=== PATIENT | female | born 1950 | race Caucasian/White ===

== ENCOUNTER 2025-06-06 09:04 | Day surgery (SDC) | payer MEDICARE, MEDICAID, SELFPAY ==
[2025-06-06] VITALS (10 sets, daily range): BP systolic 98–126; BP diastolic 55–63; PULSE 53–72; RESP 16; TEMP 36.2–37.3; O2SAT 89–97; BMI 31.8
[2025-06-06] MEDS: Lactated Ringers 1,000 ML 15 ML IV (09:30)
--- NOTE | 2025-06-06 10:00 | COLBX_PTH ---
PATIENT: SHERRELL DANIELS (TREVIN) J LOC: EN U#:[id number] AGE/SX: 74/F ROOM: RE06/06/[address]: Dr. Tyree Mcelroy DO : 1950 BED: DIS: 06/06/2025 SPEC #: [id number] RECD: 06/06/25 13:43 STATUS: ALKA REQ #: [id number] DESTINY: 06/06/25 10:[address]: Tyree Mcelroy DEPT: SURGICAL PATHOLOGY RECD BY: Brown Napoles ENTERED: 06/06/25 14:47 SP TYPE: COLON BX OTHR DR: Dr. Anel Zhang MD Tissues: A - Gastric mucous membrane B - Esophagus, NOS C - Cecum, NOS D - Transverse colon Procedures: Surgery Specimen Level IV HEADER OPERATION: Colonoscopy, EGD, dilatation, biopsy PRE-OP DIAGNOSIS: History of colonic polyps, heartburn, abdominal pain TISSUE SUBMITTED: A- Gastric ulcer biopsy, B- Distal esophagus biopsy, C- Cecal polyp biopsy, D- Transverse colon polyp biopsy ADDENDUM ADDENDUM ADDENDUM ADDENDUM ADDENDUM ADDENDUM ADDENDUM ADDENDUM ADDENDUM ADDENDUM ADDENDUM 06/14/2025 15:39 ADDENDUM 06/14/2025 15:39 ADDENDUM 06/14/2025 15:39 ADDENDUM 06/14/2025 15:39 ADDENDUM 06/14/2025 15:39 This addendum is to report the PASD special stain on part B: B) PASD All matched controls reacted appropriately. These tests were developed and their performance characteristics determined by [facility]. They may not have been cleared or approved by the U.S. Food and Drug Administration. The FDA has determined that such clearance or approval is not necessary. The above immunohistochemical markers and/or special stains have been reviewed by the Pathologist. MICROSCOPIC DIAGNOSIS A. Gastric ulcer, biopsy: - Oxyntic mucosa with features of reactive gastropathy. - Negative for Helicobacter-like organisms (H&E). B. Distal esophagus, biopsy: - Squamous mucosa with hyperkeratosis, mild acute inflammation, and rare eosinophils. - Columnar mucosa negative for goblet cell metaplasia. - A PASD stain is pending and will be reported in an addendum. C. Cecum, polyp, biopsy: - Tubular adenoma. D. Transverse colon, polyp, biopsy: - Tubular adenoma. MICROSCOPIC DESCRIPTION Slides are reviewed. GROSS DESCRIPTION A. Received in fixative is one container labeled with the patient's name and designated Gastric ulcer biopsy. The specimen consists of multiple irregular fragments of eddy tissue that in aggregate measure 0.8 x 0.5 x 0.1 cm. The specimen is totally submitted in one cassette. B. Received in fixative is one container labeled with the patient's name and designated Distal esophagus biopsy. The specimen consists of multiple irregular fragments of eddy tissue that in aggregate measure 0.8 x 0.3 x 0.1 cm. The specimen is totally submitted in one cassette. C. Received in fixative is one container labeled with the patient's name and designated Cecal polyp biopsy. The specimen consists of one irregular fragment of eddy tissue that measures 0.4 cm. The specimen is totally submitted in one cassette. D. Received in fixative is one container labeled with the patient's name and designated Transverse colon polyp biopsy. The specimen consists of one irregular fragment of eddy tissue that measures 0.4 cm. The specimen is totally submitted in one cassette. IN 06/06/2025 CPT:[id number] ADDENDUM ADDENDUM ADDENDUM ADDENDUM ADDENDUM ADDENDUM ADDENDUM ADDENDUM ADDENDUM ADDENDUM ADDENDUM 06/14/2025 15:39 ADDENDUM 06/14/2025 15:39 ADDENDUM 06/14/2025 15:39 ADDENDUM 06/14/2025 15:39 ADDENDUM 06/14/2025 15:39 This addendum is to report the PASD special stain on part B: B) PASD All matched controls reacted appropriately. These tests were developed and their performance characteristics determined by [facility]. They may not have been cleared or approved by the U.S. Food and Drug Administration. The FDA has determined that such clearance or approval is not necessary. The above immunohistochemical markers and/or special stains have been reviewed by the Pathologist.
--- NOTE | 2025-06-06 10:30 | PCM.PRE.AN2 ---
ASA Classification* ASA Classification ASA Classification: 3 Assessment & Plan Anesthesia* Anesthesia Assessment Anesthesia Assessment: Discussed sedation and/or anesthesia options, risks, benefits, and alternatives with patient/parents/legal guardian/POA. Questions invited. The patient/parents/legal guardian/POA seems to understand and agrees to proceed with anesthesia plan. Reviewed the physical assessment, medical history, allergy history and patient home medications list prior to surgery/procedure/anesthetic and documented any changes. Performed airway and anesthesia risk assessments. 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 When Was Last Pacemaker Check QUESTION #4 FULL TEXT: You/Your Family Experience fever (hyperthermia) with Anesthesia Last Oral Intake Last Oral intake: Last Oral Intake NPO since 07:00 06/06/25 09:36 Meds taken in AM with sips of Yes 06/06/25 09:36 water? Meds patient instructed to take am of surgery Any additional information?: Yes NPO since: 07:00 (Patient finished prep at 7 AM.) Meds taken in AM with sips of water?: Yes PONV PONV - golf course starter: PONV - golf course starter Female Yes 06/05/25 08:26 HX of Motion Sickness No 06/05/25 08:26 HX of N/V After Surgery Yes 06/05/25 08:26 Non-Smoker No 06/05/25 08:26 Duration of Surgery greater No 06/05/25 08:26 than 60 minutes Number of Risk Factors 2 06/05/25 08:26 PONV Score Moderate Risk 06/05/25 08:26 Height & Weight Height & Weight: Anesthesia: Height & Weight Height 5 ft 06/06/25 09:36 Weight: 74 kg 06/06/25 09:36 Body Mass Index (BMI) 31.8 06/06/25 09:36 Respiratory Assessment Respiratory Assessment - golf course starter: Respiratory Tract Infection Hx - golf course starter Hx Respiratory Tract Infection No 06/05/25 08:26 STOP Sleep Apnea STOP Sleep Apnea - golf course starter: STOP Sleep Apnea - golf course starter Hx Hypertension No 06/05/25 08:26 Hx Sleep Apnea No 06/05/25 08:26 CPAP BIPAP Do you snore loudly (louder No 06/05/25 08:26 than talking or can be heard Do you often feel tired/ Yes 06/05/25 08:26 fatigued/ sleepy during daytime? Has anyone observed you stop No 06/05/25 08:26 breathing during sleep? STOP Results Negative 06/05/25 08:26 QUESTION #5 FULL TEXT : Do you snore loudly (louder than talking or can be heard through closed doors)? 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 Specify any problems Hx of Preganancy in last 3 No 06/05/25 08:26 [facility]ths [facility] 06/05/25 08:26 & Questions: Date: 06/05/25 06/05/25 08:26 Time: 08:33 06/05/25 08:26 Patient unable to answer at this time (ie. confused, unrespo /Reproduction History /Reproductive History - golf course starter: /Reproductive Hx- golf course starter Hx Now Gestational Age (in weeks): EDC: Hx Hx Para Hx Section SAB Active Medications Active Medications: Current Medications Generic Name Dose Route Start Last Admin Trade Name Freq PRN Reason Stop Dose Admin Lactated Ringer's 1,000 mls @ 15 mls/hr 06/06/25 09:30 06/06/25 09:30 IV 15 mls/hr .Q48H JAEL Administration PFSH Medical History Wears glasses Wears partial dentures Bipolar disorder Depression Anxiety Uses wheelchair Ambulates with cane Arthritis Bladder disease Low iron Blood disorder High cholesterol DVT (deep venous thrombosis) Back pain Injury of back Injury of head and neck Stroke/cerebrovascular accident Dietary restriction History of hiatal hernia History of diverticulitis Gastric reflux Smoker Shortness of breath on exertion Leg cramps History of pain when walking History of edema History of stress test History of irregular heartbeat Home Medications ?Medication ?Instructions ?Recorded ?Last Taken ?Type alprazolam 0.5 mg tablet 0.5 mg PO .once PRN anxiety 05/07/25 Unknown History calcitonin (salmon) 200 1 spray intranasal (ALT) QDAY 05/07/25 Unknown History unit/actuation nasal spray cyanocobalamin (vitamin B-12) 1,000 mcg PO QDAY 05/07/25 Unknown History 1,000 mcg capsule flaxseed oil 1,000 mg capsule 1,000 mg PO QDAY 05/07/25 Unknown History gabapentin 300 mg capsule 300 mg PO BID 05/07/25 Unknown History sennosides 8.6 mg capsule (senna) 8.6 mg PO BID 05/07/25 Unknown History sulfamethoxazole 800 1 tab PO QDAY 05/07/25 Unknown History mg-trimethoprim 160 mg tablet ASA DIPYRIDA 1 ea PO BID 05/08/25 06/02/25 History L.acidophil,salivari-Bifido 1 cap PO BID 05/08/25 Unknown History bifidum-Strep thermoph 175 mg capsule (Acidophilus Probiotic Blend) acetaminophen 325 mg tablet 325 mg PO Q4H PRN fever or pain 05/08/25 Unknown History atorvastatin 10 mg tablet (Lipitor) 20 mg PO QDAY 05/08/25 Unknown History cholecalciferol (vitamin D3) 25 1,000 unit PO QAM 05/08/25 Unknown History mcg (1,000 unit) capsule citalopram 20 mg tablet 10 mg PO QAM 05/08/25 Unknown History diphenhydramine HCl 25 mg tablet 25 mg PO Q8H PRN allergy symptoms 05/08/25 Unknown History (Banophen) fluticasone propionate 50 1 spray intranasal QAM allergies 05/08/25 Unknown History mcg/actuation nasal spray,suspension (Allergy Relief (fluticasone)) folic acid 1 mg tablet 1 mg PO QAM 05/08/25 Unknown History furosemide 80 mg tablet 80 mg PO QAM 05/08/25 Unknown History hydrocodone-acetaminophen 5-325mg 1 tab PO BID 05/08/25 06/06/25 History 5mg-325mg methocarbamol 750 mg tablet 750 mg PO BID 05/08/25 Unknown History multivitamin 1 tab PO QAM 05/08/25 Unknown History naproxen 500 mg tablet 500 mg PO Q12H PRN pain 05/08/25 Unknown History ondansetron HCl 4 mg tablet 4 mg PO Q12H PRN nausea and 05/08/25 Unknown History vomiting pantoprazole 40 mg tablet,delayed 40 mg PO BID 05/08/25 06/06/25 History release potassium chloride 20 mEq 20 meq PO QAM 05/08/25 Unknown History tablet,extended release (K-Tab) trazodone 50 mg tablet 100 mg PO QHS 05/08/25 Unknown History Allergy/AdvReac Type Severity Reaction Status Date / Time ragweed pollen Allergy Unknown allergic Verified 06/06/25 09:28 rhinitis warfarin (From Coumadin) Allergy PT UNSURE Verified 06/06/25 09:28 OF REACTION codeine AdvReac Unknown GI upset Verified 06/06/25 09:28 meperidine AdvReac Unknown Rash Verified 06/06/25 09:28 morphine AdvReac Unknown Hives Verified 06/06/25 09:28 oxybutynin AdvReac Unknown Hives Verified 06/06/25 09:28 Surgical History History of tonsillectomy History of knee surgery History of rotator cuff surgery History of eye surgery Social History Smoking Status: Current every day smoker tobacco type: cigarettes Tobacco: How many years used: 51 alcohol intake: never Review of Systems (Anesthesia) ROS Narrative System reviewed and no additional complaints, except as documented.
--- NOTE | 2025-06-06 11:01 | PCM.HP.STD ---
HPI - General General Date of Admission: 06/06/25 Date of Service: 06/06/25 Chief Complaint: GERD, abdominal pain and surveillance colonoscopy for history of polyps HPI Narrative SHERRELL DANIELS (BOBBE), is a 74 F who presents [Chief Complaint: nausea Patient here today for screening colonoscopy. Patient with last colonoscopy 1 to 2 years ago with polyps. She is not sure where she had her colonoscopy done or what type of polyps. She says that she was advised to have a colonoscopy yearly. She has alternating constipation and loose stools since being on [place] for pain. She is on a stool softener daily. Patient also has had nausea and vomiting after meals for few years now. She has heartburn and takes pantoprazole 40 mg twice a day. Despite acid suppression she continues to have heartburn daily. It is worse after meals. She notes that she did have a bleeding gastric ulcer in the past. She takes iron daily. Her stools are dark. Unsure when her last EGD was but she has had 1 in the past. She denies family history of colon cancer. [facility] Medical History Wears glasses Wears partial dentures Bipolar disorder Depression Anxiety Uses wheelchair Ambulates with cane Arthritis Bladder disease Low iron Blood disorder High cholesterol DVT (deep venous thrombosis) Back pain Injury of back Injury of head and neck Stroke/cerebrovascular accident Dietary restriction History of hiatal hernia History of diverticulitis Gastric reflux Smoker Shortness of breath on exertion Leg cramps History of pain when walking History of edema History of stress test History of irregular heartbeat Home Medications ?Medication ?Instructions ?Recorded ?Last Taken ?Type alprazolam 0.5 mg tablet 0.5 mg PO .once PRN anxiety 05/07/25 Unknown History calcitonin (salmon) 200 1 spray intranasal (ALT) QDAY 05/07/25 Unknown History unit/actuation nasal spray cyanocobalamin (vitamin B-12) 1,000 mcg PO QDAY 05/07/25 Unknown History 1,000 mcg capsule flaxseed oil 1,000 mg capsule 1,000 mg PO QDAY 05/07/25 Unknown History gabapentin 300 mg capsule 300 mg PO BID 05/07/25 Unknown History sennosides 8.6 mg capsule (senna) 8.6 mg PO BID 05/07/25 Unknown History sulfamethoxazole 800 1 tab PO QDAY 05/07/25 Unknown History mg-trimethoprim 160 mg tablet ASA DIPYRIDA 1 ea PO BID 05/08/25 06/02/25 History L.acidophil,salivari-Bifido 1 cap PO BID 05/08/25 Unknown History bifidum-Strep thermoph 175 mg capsule (Acidophilus Probiotic Blend) acetaminophen 325 mg tablet 325 mg PO Q4H PRN fever or pain 05/08/25 Unknown History atorvastatin 10 mg tablet (Lipitor) 20 mg PO QDAY 05/08/25 Unknown History cholecalciferol (vitamin D3) 25 1,000 unit PO QAM 05/08/25 Unknown History mcg (1,000 unit) capsule citalopram 20 mg tablet 10 mg PO QAM 05/08/25 Unknown History diphenhydramine HCl 25 mg tablet 25 mg PO Q8H PRN allergy symptoms 05/08/25 Unknown History (Banophen) fluticasone propionate 50 1 spray intranasal QAM allergies 05/08/25 Unknown History mcg/actuation nasal spray,suspension (Allergy Relief (fluticasone)) folic acid 1 mg tablet 1 mg PO QAM 05/08/25 Unknown History furosemide 80 mg tablet 80 mg PO QAM 05/08/25 Unknown History hydrocodone-acetaminophen 5-325mg 1 tab PO BID 05/08/25 06/06/25 History 5mg-325mg methocarbamol 750 mg tablet 750 mg PO BID 05/08/25 Unknown History multivitamin 1 tab PO QAM 05/08/25 Unknown History naproxen 500 mg tablet 500 mg PO Q12H PRN pain 05/08/25 Unknown History ondansetron HCl 4 mg tablet 4 mg PO Q12H PRN nausea and 05/08/25 Unknown History vomiting pantoprazole 40 mg tablet,delayed 40 mg PO BID 05/08/25 06/06/25 History release potassium chloride 20 mEq 20 meq PO QAM 05/08/25 Unknown History tablet,extended release (K-Tab) trazodone 50 mg tablet 100 mg PO QHS 05/08/25 Unknown History Allergy/AdvReac Type Severity Reaction Status Date / Time ragweed pollen Allergy Unknown allergic Verified 06/06/25 09:28 rhinitis warfarin (From Coumadin) Allergy PT UNSURE Verified 06/06/25 09:28 OF REACTION codeine AdvReac Unknown GI upset Verified 06/06/25 09:28 meperidine AdvReac Unknown Rash Verified 06/06/25 09:28 morphine AdvReac Unknown Hives Verified 06/06/25 09:28 oxybutynin AdvReac Unknown Hives Verified 06/06/25 09:28 Surgical History History of tonsillectomy History of knee surgery History of rotator cuff surgery History of eye surgery Social History Smoking Status: Current every day smoker (Patient smoked today.) tobacco type: cigarettes Tobacco: How many years used: 51 alcohol intake: never ROS Constitutional Constitutional: Denies fatigue, fever(s), poor appetite, weight gain or weight loss Gastrointestinal Gastrointestinal: Denies belching, bloating, change in bowel habits, change in stool character, chewing difficulty, coffee ground emesis, constipation, cramping, diarrhea, dyspepsia, dysphagia, early satiety, excessive flatus, fecal incontinence, heartburn, hematemesis, hematochezia, hemorrhoids, loose stools, melena, nausea, odynophagia, rectal bleeding, tenesmus, vomiting or weight changes Vital Signs Vital Signs Vital Signs: 06/06/25 09:36 06/06/25 09:39 06/06/25 10:38 Temperature 99.2 F H 99.2 F H Temperature Source Temporal Pulse Rate 72 72 Respiratory Rate 16 16 Respiratory Pattern Normal Blood Pressure 120/63 120/63 Blood Pressure Mean 82 Blood Pressure Source Monitor Blood Pressure Position Semi-Fowlers Blood Pressure Location Left Arm Pulse Ox 95 95 Oxygen Delivery Method Room Air Room Air Weight Weight: 163 lb 2.273 oz Body Mass Index (BMI) 31.8 Physical Exam Const alert, oriented x3, no apparent distress and healthy appearing General Appearance: cooperative GI normal to inspection, nondistended, normoactive bowel sounds, soft to palpation, non-tender and non-distended Percussion: normal to percussion Rectal Exam: deferred Assessment & Plan Assessment/Plan (1) Hx of colonic polyps: (2) Heartburn: (3) Abdominal pain: PLAN: Assessment and Plan Assessment and Plan (1) Abdominal pain: Status: Acute (2) Heartburn: Status: Acute Plan: Sherrell is a 74-year-old female patient here today for evaluation and screening colonoscopy. Patient's last colonoscopy was 1 to 2 years ago with polyps however she was believes she was told to have another in a year. I did explain that we typically do not repeat colonoscopies that frequently unless there is dysplasia. Patient would like to have a colonoscopy regardless. She was scheduled for this today. Patient also endorsing nausea, vomiting and heartburn. She has had a bleeding gastric ulcers in the past. She is on pantoprazole 40 mg twice a day. She will undergo EGD in conjunction with her colonoscopy. The patient was agreeable to the plan. - Colonoscopy - EGD - Continue PPI - Follow-up after endoscopy heartburn heartburn establishment (3) Nausea & vomiting: Status: Acute (4) Hx of colonic polyps: Status: Acute ]
--- NOTE | 2025-06-06 11:52 | OP.EGD_ITS ---
Patient Name: Mciheline Tirado (bobbe)
--- NOTE | 2025-06-06 11:58 | OP.COLON_ITS ---
Patient Name: Micheline Tirado (bobbe)
--- NOTE | 2025-06-06 11:59 | POSTOP.ANE_ITS ---
Anesthesia: Postop Eval I
--- NOTE | 2025-06-06 11:59 | PCM.POST.ANE ---
Anesthesia: Postop Eval I Current Vital Signs Temperature: 97.1 F Pulse Rate: 62 Blood Pressure: 100/56 Respiratory Rate: 16 Pulse Ox: 94 Oxygen Delivery Method: Nasal Cannula Oxygen Flow Rate (L/min): 2 Assessment Airway patent: Yes Spontaneous unlabored respirations: Yes Mental status: Asleep nausea: No Vomiting: No Anesthesia Complication: No Fluid Hydration Crystalloid volume administer (ml): 600 Total IV fluid infused: 600 Progress Note Anesthesia document: Postop Eval 1 completed: Yes
--- NOTE | 2025-06-06 16:17 | POSTOPAN2_ITS ---
Anesthesia Postop Eval I Sum
--- NOTE | 2025-06-06 16:17 | PCM.POSTANE2 ---
Anesthesia Postop Eval I Sum Postop Eval Completion status Anesthesia document: Postop Eval 1 completed: Yes Anesthesia Postop Eval I Summary Anesthesia Postop Eval I Summary: Anesthesia Postop Eval I: Assessment Summary Airway patent Yes 06/06/25 12:00 [email or web address] Spontaneous unlabored Yes 06/06/25 12:00 [email or web address] respirations Mental status Asleep 06/06/25 12:00 [email or web address] nausea No 06/06/25 12:00 [email or web address] Vomiting No 06/06/25 12:00 [email or web address] Anesthesia Postop Eval I: Fluid Summary Crystalloid volume administer 600 06/06/25 12:00 [email or web address] (ml) Colloids volume administered ( ml) Blood Product volume administered (ml) Total IV fluid infused 600 06/06/25 12:00 [email or web address] Anesthesia Postop Eval I: Summary Notes Anesthesia Complication No 06/06/25 12:00 [email or web address] Anesthesia Complication Comment: Post-operative progress note Anesthesia: Postop Eval II Evaluation Mental status: Awake and Calm Pain Level: 0 nausea: No Vomiting: No Complications Anesthesia Complication: No
== END 2025-06-06 13:23 | disposition home or self-care (01) ==
LOC: EN 09:18 → AC 09:22
PROVIDERS: PCP Internal Medicine; Referring Provider Internal Medicine; Visit Provider Internal Medicine Gastroenterology
PROC: 0DJD8ZZ Inspection of Lower Intestinal Tract, Via Natural or Artificial Opening Endoscopic (ICD-10-PCS; CPT 45378; principal; 2025-06-06 09:55)
DX: Z12.11 Encounter for screening for malignant neoplasm of colon (principal); K63.5 Polyp of colon; K64.1 Second degree hemorrhoids; E78.00 Pure hypercholesterolemia, unspecified; R13.10 Dysphagia, unspecified; K21.9 Gastro-esophageal reflux disease without esophagitis; K44.9 Diaphragmatic hernia without obstruction or gangrene; Z86.0100 Personal history of colon polyps, unspecified; K57.30 Diverticulosis of large intestine without perforation or abscess without bleeding; Z79.899 Other long term (current) drug therapy; Z79.891 Long term (current) use of opiate analgesic; Z86.73 Personal history of transient ischemic attack (TIA), and cerebral infarction without residual deficits; F41.9 Anxiety disorder, unspecified; F17.210 Nicotine dependence, cigarettes, uncomplicated; R10.9 Unspecified abdominal pain; R11.2 Nausea with vomiting, unspecified; K22.89 Other specified disease of esophagus; K22.2 Esophageal obstruction; K25.4 Chronic or unspecified gastric ulcer with hemorrhage; D12.0 Benign neoplasm of cecum; L85.9 Epidermal thickening, unspecified; K20.90 Esophagitis, unspecified without bleeding
CPT/HCPCS: 45380; 43248; 88305; C1769; J2405